=== PATIENT | male | born 1955 | race Caucasian/White ===

== ENCOUNTER → 2017-08-08 | Outpatient (CLI) | payer OTHER ==
[~2017-08-08] MED LIST: ALLO300; ATOR20; PARO20
[2017-08-08 15:45] LABS: Adenovirus F 40/41 Not Detected (NOT DETECT); Astrovirus Not Detected (NOT DETECT); Campylobacter Sp Not Detected (NOT DETECT); Cryptosporidium Not Detected (NOT DETECT); Cyclospora Cayetanensis Not Detected (NOT DETECT); E. Coli O157 Not Detected (NOT DETECT); Entamoeba Histolytica Not Detected (NOT DETECT); Enteroaggregative E. coli-EAEC Not Detected (NOT DETECT); Enteropathogenic E. coli-EPEC Not Detected (NOT DETECT); Enterotoxigenic E. coli-ETEC Not Detected (NOT DETECT); Giardia Lamblia Not Detected (NOT DETECT); Norovirus GI/GII Not Detected (NOT DETECT); Plesiomonas Shigelloides Not Detected (NOT DETECT); Rotavirus A Not Detected (NOT DETECT); Salmonella Sp Not Detected (NOT DETECT); Sapovirus Not Detected (NOT DETECT); Shiga Toxin-prod E. coli-STEC Not Detected (NOT DETECT); Vibrio Cholerae Not Detected (NOT DETECT); Vibrio Sp Not Detected (NOT DETECT); Yersinia Enterocolitica Not Detected (NOT DETECT)
[2017-08-08 19:05] LABS: Shigella/Enteroin E. coli-EIEC Detected (NOT DETECT)
== END | disposition home or self-care (01) ==
LOC: LAB 15:15
PROVIDERS: Family Medicine
DX: R19.4 Change in bowel habit (principal)
CPT/HCPCS: 87507

== ENCOUNTER → 2019-09-17 | Outpatient (CLI) | payer OTHER | END | disposition home or self-care (01) | LOC: PLD 09:05 → LAB SHORT 09:05 | DX: D48.5 Neoplasm of uncertain behavior of skin (principal) | CPT/HCPCS: 88305 ==

== ENCOUNTER → 2020-11-25 | Outpatient (CLI) | payer OTHER, MEDICARE | END | disposition home or self-care (01) | LOC: LAB SHORT 11:04 | DX: L57.8 Other skin changes due to chronic exposure to nonionizing radiation (principal); R23.4 Changes in skin texture | CPT/HCPCS: 88305 ==

== ENCOUNTER 2021-12-21 13:13 | Inpatient (IN) | payer MEDICARE, BC ==
[~2021-12-21] VITALS: Ht 175.3 cm; Wt 93.7 kg
[~2021-12-21 13:13] MED LIST changes: -ALLO300; +ALLO300 PO
[2021-12-21 14:12] LABS: BASOPHILS ABSOLUTE AUTO 0.04 K/mm3 (0.00-0.23); BASOPHILS PERCENT AUTO 1 % (0-2); EOSINOPHILS ABSOLUTE AUTO 0.07 K/mm3 (0.00-0.68); EOSINOPHILS PERCENT AUTO 1 % (0-6); Hematocrit 41.5 % (37.0-53.0); Hemoglobin 15.4 g/dL (13.5-17.5); IMMATURE GRAN ABSOLUTE AUTO 0.05 K/mm3 (0.00-0.10); IMMATURE GRAN PERCENT AUTO 1 % (0-1); LYMPHOCYTES ABSOLUTE AUTO 0.99 K/mm3 (0.84-5.20); LYMPHOCYTES PERCENT AUTO 12 % (21-46); MONOCYTES ABSOLUTE AUTO 0.54 K/mm3 (0.16-1.47); MONOCYTES PERCENT AUTO 7 % (4-13); Mean Corpuscular HGB 39.1 pg (26.0-34.0); Mean Corpuscular HGB Conc 37.1 g/dL (31.5-36.5); Mean Corpuscular Volume 105 fL (80-100); Mean Platelet Volume 9.3 fL (9.1-12.4); NEUTROPHILS ABSOLUTE AUTO 6.57 K/mm3 (1.96-9.15); NEUTROPHILS PERCENT AUTO 80 % (41-73); Platelet Count 257 K/mm3 (150-400); RDW Coefficient Variation 13.3 % (11.7-14.2); RDW Standard Deviation 52.3 fL (35.1-46.3); Red Blood Cell Count 3.94 M/mm3 (4.30-5.90); White Blood Cell Count 8.26 K/mm3 (4.00-11.30)
[2021-12-21 14:15] LABS: Calcium, Ionized (POC) 1.15 mmol/L (1.10-1.46); Chloride (POC) 104 mmol/L (98-108); Creatinine (POC) 1.2 mg/dL (0.8-1.3); Glucose (ISTAT POC) 135 mg/dL (70-99); Hemoglobin (POC) 15.6 g/dL (13.5-17.5); Potassium (POC) 4.8 mmol/L (3.5-5.5); Sodium (POC) 140 mmol/L (135-148); Total CO2 (POC) 28 mmol/L (21-32)
[2021-12-21 14:25] LABS: Albumin, Blood 4.3 g/dL (3.4-5.0); Albumin/Globulin Ratio 1.2 (0.8-1.8); Bilirubin, Total 0.7 mg/dL (0.1-1.0); Bun/Creatinine Ratio 15.2 (12.0-20.0); Calcium, Blood 9.3 mg/dL (8.5-10.1); Creatinine, Blood 1.05 mg/dL (0.60-1.20); Globulin, Blood 3.6 g/dL (2.2-4.0); Potassium, Blood 4.1 mmol/L (3.5-5.5); Total Protein, Blood 7.9 g/dL (6.4-8.2)
[2021-12-21 14:30] LABS: Anti-Xa UFH, PHA Monitoring <0.10 IU/mL; International Normalized Ratio 1.05
[2021-12-21 14:40] LABS: CHOL/HDL RATIO 5.3; Cholesterol 212 mg/dL (50-200); HDL Cholesterol 40 mg/dL (>39); LDL/HDL RATIO 3.3; Low Density Lipoprotein Chol 132 mg/dL (0-110); Magnesium, Blood 2.3 mg/dL (1.6-2.4); Triglycerides 201 mg/dL (30-160); Very Low Density Lipoprot Chol 40 mg/dL (6-32)
--- NOTE | 2021-12-21 16:30 | NUR ---
PT ARRIVED FROM PARACHUTIST/COMBATANT DIVER QUALIFIED ER ADMIT. HAD 4 STENTS PLACED. PT IS A/O X4, DENIES CP OR PRESSURE, DENIES SOB, DENIES N/V. R RADIAL ACCESS SITE WITH TR BAND IN PLACE. SITE IS STABLE. ARM BOARD IN PLACE. PT EDUCATED ABOUT WRIST RESTRICTIONS. NO SIGN OF DISTRESS.
--- NOTE | 2021-12-21 18:41 | NUR ---
DR. CHAPA BY TO SEE PT. NOTIFIED OF TROPONIN AND OCCASIONAL ECTOPY ON THE MONITOR. PT RESTING IN BED, NO SIGN OF DISTRESS.
[2021-12-21] MEDS ORDERED: ESCI10 PO (18:42)
--- NOTE | 2021-12-21 20:24 | NUR ---
ASSUMED CARE OF PT AT 1919, BEDSIDE REPORT RECEIVED. PT IS RESTING QUIETLY RECLINING IN BED, DENIES PAIN, ADMITS TO VERY SLIGHT TIGHTNESS TO CENTER OF CHEST AND STATES THAT HE WOULD RATE LESS THAN 1/10 "0.5" IF HE HAD TO GIVE IT A NUMBER. DENIES N/V, DENIES SOB/DYSPNEA. NOTED MARKEDLY CONVERSATIONAL WITHOUT VISIBLE INCREASED WORK OF BREATHING. TR BAND REVIEWED WITH OFFGOING RN, 10 ML TOTAL IN BAND PER HEART CENTER STAFF AND 1 ML OF AIR REMOVED AT THIS TIME, SITE REMAINS STABLE. REVIEWED RIGHT UPPER EXTREMITY ACTIVITY RESTRICTIONS WITH PT WELL BLEEDING RISK, UNDERSTANDING VERBALIZED. SPO2 SENSOR NOTED IN PLACE TO RIGHT INDEX FINGER WITH STRONG WAVE FORM NOTED ON MONITOR. HEART TONES ARE DISTANT, RHYTHM SINUS IN THE 60S, PRESSURES MAINTAINING STABLE 110S/90S AT THIS TIME. WILL CONT TO MONITOR. 1925, RIGHT RADIAL ACCESS SITE REMAINS STABLE, 1 ML AIR REMOVED FROM TR BAND 1944, RIGHT RADIAL ACCESS SITE REMAINS STABLE, 1 ML AIR REMOVED FROM TR BAND. PT STATES THAT EVENING MEAL TRAY HAS NOT ARRIVED AND HE IS HUNGRY, SANDWICH, APPLESAUCE, AND 1% MILK PROVIDED. 1999, RIGHT RADIAL ACCESS SITE REMAINS STABLE, 1 ML AIR REMOVED FROM TR BAND. LAB AT BEDSIDE FOR BLOOD DRAW.
--- NOTE | 2021-12-21 20:37 | NUR ---
TR BAND DEFLATION RIGHT RADIAL ACCES SITE CONTINUES STABLE, 1 ML AIR REMOVED FROM TR BAND WILL CONT TO MONITOR.
--- NOTE | 2021-12-21 21:33 | NUR ---
TR BAND DEFLATION 2044 RIGHT RADIAL ACCESS SITE REMAINS STABLE, 1 ML AIR REMOVED FROM TR BAND 2099 RIGHT RADIAL ACCESS SITE REMAINS STABLE, 1 ML AIR REMOVED FROM TR BAND 2114 RIGHT RADIAL ACCESS SITE REMAINS STABLE, 1 ML AIR REMOVED FROM TR BAND 2129 RIGHT RADIAL ACCESS SITE REMAINS STABLE, 1 ML AIR REMOVED FROM TR BAND, BAND NOTED TO BE COMPLETELY DEFLATED AT THIS TIME. WILL MONITOR. PLAN TO REMOVE TR BAND IN 1 HOUR.
--- NOTE | 2021-12-21 22:52 | NUR ---
TR BAND REMOVAL RIGHT RADIAL ACCESS SITE REMAINS STABLE, TR BAND REMOVED. SKIN CLEANSED WITH CHLORHEXADINE SWAB, NO STING BARRIER APPLIED, CLEAR TEGADERM DRESSING APPLIED. RIGHT UPPER EXTREMITY ACTIVITY RESTRICTIONS REVIEWED WITH PT, UNDERSTANDING VERBALIZED.
--- NOTE | 2021-12-22 00:12 | NUR ---
HEPARIN GTT INSTRUCTED BY PHARMACIST MIREYA FLEMING TO PLACE HEPARIN GTT ON HOLD FOR 1 HOUR AND THEN RESTART AT 10 UNITS/KG/HR. HEPARIN GTT TO STANDBY AT THIS TIME. RIGHT RADIAL ACCESS SITE REMAINS STABLE.
--- NOTE | 2021-12-22 01:55 | NUR ---
V-TACH PT WITH 25 BEAT RUN OF VTACH, ON THIS RN'S ARRIVAL TO ROOM PT WAS NOTED TO APPEAR TO BE SLEEPING POSITIONED ON RIGHT SIDE. PT ROUSED EASILY TO VERBAL STIMULI, DENIES PALPATIONS, DENIES DIZZINESS, STATES THAT HE FEELS WELL AT THIS TIME. PRESSURE OBTAINED AND NOTED TO BE STABLE. PT CURRENTLY IN SINUS RHYTHM. WILL MONITOR.
[2021-12-22 04:25] LABS: BASOPHILS ABSOLUTE AUTO 0.03 K/mm3 (0.00-0.23); BASOPHILS PERCENT AUTO 0 % (0-2); EOSINOPHILS ABSOLUTE AUTO 0.08 K/mm3 (0.00-0.68); EOSINOPHILS PERCENT AUTO 1 % (0-6); Hematocrit 38.3 % (37.0-53.0); Hemoglobin 13.5 g/dL (13.5-17.5); IMMATURE GRAN ABSOLUTE AUTO 0.03 K/mm3 (0.00-0.10); IMMATURE GRAN PERCENT AUTO 0 % (0-1); LYMPHOCYTES ABSOLUTE AUTO 1.49 K/mm3 (0.84-5.20); LYMPHOCYTES PERCENT AUTO 18 % (21-46); MONOCYTES PERCENT AUTO 10 % (4-13); Mean Corpuscular HGB 38.1 pg (26.0-34.0); Mean Corpuscular HGB Conc 35.2 g/dL (31.5-36.5); Mean Corpuscular Volume 108 fL (80-100); Mean Platelet Volume 9.8 fL (9.1-12.4); NEUTROPHILS ABSOLUTE AUTO 5.71 K/mm3 (1.96-9.15); NEUTROPHILS PERCENT AUTO 70 % (41-73); Platelet Count 232 K/mm3 (150-400); RDW Coefficient Variation 13.5 % (11.7-14.2); RDW Standard Deviation 53.6 fL (35.1-46.3); Red Blood Cell Count 3.54 M/mm3 (4.30-5.90); White Blood Cell Count 8.14 K/mm3 (4.00-11.30)
[2021-12-22 04:50] LABS: Bun/Creatinine Ratio 15.5 (12.0-20.0); Calcium, Blood 8.4 mg/dL (8.5-10.1); Creatinine, Blood 0.97 mg/dL (0.60-1.20); Potassium, Blood 3.7 mmol/L (3.5-5.5)
--- NOTE | 2021-12-22 05:47 | NUR ---
PT RESTS QUIETLY THROUGHOUT SHIFT, EAR PLUGS OFFERED AND ACCEPTED BY PT AFTER HE REPORTED THAT HE IS TYPICALLY A LIGHT SLEEPER. HE DOES STATE THAT EAR PLUGS IMPROVED HIS SLEEP THIS SHIFT. HE CONTINUES WITH VERY MILD TIGHTNESS TO MID STERNAL AREA OF CHEST HOWEVER STATES THAT THIS HAS IMPROVED FROM THE BEGINNING OF THIS SHIFT. RIGHT RADIAL ACCESS SITE REMAINS STABLE, NO BRUISING, BLEEDING, OR HEMATOMA IS NOTED, PT COMPLIANT WITH RIGHT UPPER EXTREMITY ACTIVITY RESTRICTIONS. SATS MAINTAIN ON ROOM AIR, PT DENIES DYSPNEA/SOB. SINUS RHYTHM TO SINUS BRADYCARDIA IN THE UPPER 50S WITH SLEEP, INTERMITTENT PVCS WITH ONE 25 BEAT RUN OF V-TACH AT 0149 THIS AM. PRESSURES MAINTAINING NEAR BASELINE PER PT. LAST TROPONIN LEVEL AT 0400 THIS AM NOTED TO BE TRENDING DOWN.
--- NOTE | 2021-12-22 09:07 | NUR ---
Assumed care of pt at 0700. Report received from Bryanna VELASQUEZ. Pt A&O x 4. Answers questions, follows commands, verbalizes needs. Pleasant and cooperative with care. SpO2 90% or greater RA. Radial artery access site on R side dressed with tegaderm and wrist immobilization board. Color, sensation, pulses, capillary refill equal BUE. SR per monitor. BP stable.
--- NOTE | 2021-12-22 10:01 | NUR ---
Echocardiogram using 0.60ml of Definity contrast was performed.
--- NOTE | 2021-12-22 12:35 | NUR ---
Patient ambulated to ICU east and back, tolerated well. Ambulated past elevators, through surgical floor, PCU, and back and tolerated well. Max HR 94. Pt denied lightheadedness, dizziness, chest pain. States he typically cycles 25-30 miles and is able to walk as far as he wants. Dr Arias states patient may discharge home. Discussed ordered metoprolol succinate. Provider states to hold it, as pt's SBP is most often in 90s. She plans to start it in clinic instead.
[2021-12-22] MEDS ORDERED: ASPI81CH PO (12:57)
[2021-12-22] MEDS ORDERED: ATOR40TA PO (12:58)
[2021-12-22] MEDS ORDERED: NITR.4SL SL (12:59)
[2021-12-22] MEDS ORDERED: TICA90TA PO (12:59)
--- NOTE | 2021-12-22 14:08 | NUR ---
Patient discharged from unit at 1355. Medications faxed to [facility] and physical copy of prescription given to pt's spouse. Concern that pt would not be able to obtain medications in time for evening dose of brilinta due to pharamcy staffing shortages. Dr Arias wrote for one dose of brilinta to be sent home with patient. Instructed on use. Patient provided with brilinta coupon. This RN scheduled follow up appointments for PCP and cardiology. Stent card given to patient. IV access discontinued.
== END 2021-12-22 14:00 | disposition home or self-care (01) | DRG 246 ==
LOC: ER 13:13 → ICUW 14:01 → ICUE 14:01
PROVIDERS: Emergency Medicine; Internal Medicine Interventional Cardiology; ADMIT Student in an Organized Health Care Education/Training Program
PROC: 027137Z Dilation of Coronary Artery, Two Arteries with Four or More Drug-eluting Intraluminal Devices, Percutaneous Approach (ICD-10-PCS; principal; 2021-12-21)
PROC: 4A023N7 Measurement of Cardiac Sampling and Pressure, Left Heart, Percutaneous Approach (ICD-10-PCS; 2021-12-21)
PROC: B2111ZZ Fluoroscopy of Multiple Coronary Arteries using Low Osmolar Contrast (ICD-10-PCS; 2021-12-21)
PROC: B2151ZZ Fluoroscopy of Left Heart using Low Osmolar Contrast (ICD-10-PCS; 2021-12-21)
PROC: B24BZZ3 Ultrasonography of Heart with Aorta, Intravascular (ICD-10-PCS; 2021-12-21)
PROC: B2151ZZ Fluoroscopy of Left Heart using Low Osmolar Contrast (ICD-10-PCS; 2021-12-21)
DX: I21.09 ST elevation (STEMI) myocardial infarction involving other coronary artery of anterior wall (principal); M10.9 Gout, unspecified; F41.9 Anxiety disorder, unspecified; F32.A Depression, unspecified; E78.5 Hyperlipidemia, unspecified; F17.210 Nicotine dependence, cigarettes, uncomplicated; E66.9 Obesity, unspecified; Z68.31 Body mass index [BMI] 31.0-31.9, adult; Z98.1 Arthrodesis status; Z79.899 Other long term (current) drug therapy
CPT/HCPCS: 36415; 71045; 76937; 80047; 80048; 80053; 80061; 83735; 84484; 85014; 85025; 85347; 85520; 85610; 85730; 86850; 86900; 86901; 92978; 93005; 93010; 93458; 99152; 99153; A9270; C1725; C1753; C1757; C1769; C1874; C1887; C1894; C8929; C9600; C9601; C9606; J1644; J2250; J3010; J3246; J7030; J7050; Q9957; Q9967